=== PATIENT | female | born 1950 ===

== ENCOUNTER 2023-09-08 10:49 | Emergency (ER) | payer MEDICARE ==
[~2023-09-08 10:49] MED LIST: Iopamidol-370 76% 500 ML MDV (1 ML CHARGE) ONE
[2023-09-08] MEDS ORDERED: Acetaminophen 500 MG TAB ONE (11:43)
[2023-09-08] MEDS ORDERED: Morphine 4 MG/ML VIAL ONE (12:32)
[2023-09-08] MEDS ORDERED: Ondansetron PF 4 MG/2 ML Vial ONE ×2 (12:32→14:42)
[2023-09-08 13:08] LABS: #Basophils 0.1 thou/uL (0.0-0.2); #Eosinphils 0.1 thou/uL (0.0-0.7); #Monocytes 0.5 thou/uL (0.11-0.59); #Neutrophils 6.3 thou/uL (1.40-6.50); %Basophils 0.7 % (0.0-1.0); %Eosinophils 0.7 % (0.0-10.0); %Lymphocytes 24.2 % (21.0-51.0); %Monocytes 5.4 % (0.0-10.0); %Neutrophils 68.6 % (42.0-75.0); Hematocrit 40.8 % (36.0-47.0); Hemoglobin 13.6 g/dL (12.0-16.0); Mean Corpuscular HGB CONC 33.3 g/dL (32.0-36.0); Mean Corpuscular Hemoglobin 31.9 pg (27.0-31.0); Mean Corpuscular Volume 95.8 fl (78.0-98.0); Mean Platelet Volume 9.5 fL (7.4-10.4); Platelet Count 207 10x3/uL (130-400); RBC Distribution Width 13.3 % (11.5-14.5); Red Blood Cell (RBC) Count 4.26 mill/uL (4.20-5.40); White Blood Cell (WBC) Count 9.2 10x3/uL (4.8-10.8)
[2023-09-08 13:25] LABS: ALT (SGPT) 19 U/L (8-55); AST (SGOT) 26 U/L (5-34); Alkaline Phosphatase 67 U/L (40-110); Anion Gap 15 mmol/L (10-20); BUN (Urea Nitrogen) 11 mg/dL (9.8-20.1); Bilirubin, Total 0.3 mg/dL (0.2-1.2); Calc. Creatinine Clearance 0 mL/min (70-130); Calcium 8.2 mg/dL (7.8-10.44); Carbon Dioxide 20 mmol/L (23-31); Chloride 109 mmol/L (98-107); Estimated GFR 70; Globulin 2.5 g/dL (2.4-3.5); Glucose 135 mg/dL (83-110); Potassium 3.6 mmol/L (3.5-5.1); Protein, Total 6.5 g/dL (5.8-8.1); Sodium 140 mmol/L (136-145)
[2023-09-08 13:36] LABS: Troponin I 0.167 ng/mL (< 0.028)
[2023-09-08] MEDS ORDERED: fentaNYL 50 mcg/mL 1 mL Vial ONE (14:35)
[2023-09-08] MEDS ORDERED: niMODipine 30 MG CAP PO SCH (14:45)
[2023-09-08] MEDS ORDERED: Rocuronium Bromide 10 MG/ML (10ML VIAL) ONE (14:51)
[2023-09-08] MEDS ORDERED: Lidocaine 2% PF 100 mg/5 ml Syringe ONE (14:51)
[2023-09-08] MEDS ORDERED: Propofol 1,000 MG/100 ML VIAL IV ONE (14:56)
[2023-09-08] MEDS ORDERED: niCARdipine 25 MG/10 ML SDV ONE (14:57)
[2023-09-08] MEDS ORDERED: Labetalol HCl 100 MG/20 ML VIAL ONE (15:05)
[2023-09-08 15:09] LABS: Prothrombin Time 13.5 sec (12.0-14.7)
[2023-09-08 15:10] LABS: PTT 25.3 sec (22.9-36.1)
[2023-09-08 15:36] LABS: Actual Bicarbonate (HCO3a) 18.5 mEq/L (22-28); Analyzer IN Cardio ER; Base Excess (BEa) -4.4 mEq/L (-2.0 to +3.0); CO2 Tension 28.5 mmHg (35.0-45.0); Calcium, Ionized (arterial) 1.09 mmol/L (1.12-1.30); Carboxyhemoglobin (COHb) 0.1 gm% (0.0-3.0); Hematocrit-ABG 42 % (36.0-47.0); Hemoglobin (Hb) 14.3 g/dL (12.0-16.0); Potassium - ABG Lab 3.99 mmol/L (3.70-5.30)
[2023-09-08 15:41] LABS: ALV-art Gradient 601.375 mmHg (0-20); Puncture Site LRA
== END 2023-09-08 15:55 | disposition short-term general hospital (02) ==
LOC: ERS 10:49
DX: I60.9 Nontraumatic subarachnoid hemorrhage, unspecified (principal); I72.9 Aneurysm of unspecified site
CPT/HCPCS: 31500; 36600; 70496; 70498; 71045; 80053; 82805; 82962; 83605; 84484; 85025; 85610; 85730; 86850; 86900; 86901; 93005; 94002; 96365; 96375; 99285; J3010; 36415; 36416; J2001; J2270; J2405; J2704; Q9967